=== PATIENT | male | born 1975 | race Caucasian/White ===

== ENCOUNTER 2020-01-12 04:44 | Inpatient (IN) | payer OTHER ==
[~2020-01-12] VITALS: Ht 175.3 cm; Wt 133.0 kg
[2020-01-12 04:49] VITALS: Ht 175.3 cm; Wt 133.0 kg
[2020-01-12 05:55] LABS: CALCIUM 8.2 mg/dL (8.5-10.1); CARBON DIOXIDE 26.6 mmol/L (21-32); CHLORIDE SERUM 107 mmol/L (98-107); CREATININE SERUM 0.9 mg/dL (0.7-1.3); GFR1 > 60 mL/min; GLUCOSE SERUM 119 mg/dL (74-106); POTASSIUM SERUM 3.7 mmol/L (3.5-5.1); SODIUM SERUM 140 mmol/L (136-145)
[2020-01-12 05:59] LABS: ALBUMIN 3.3 g/dL (3.4-5.0); ALKALINE PHOSPHATASE 103 U/L (46-116); ALT/SGPT 139 U/L (16-63); AST/SGOT 38 U/L (15-37); BILIRUBIN TOTAL 0.3 mg/dL (0.20-1.00); LIPASE 201 IU/L (73-393); TOTAL PROTEIN, SERUM 6.4 g/dL (6.4-8.2)
[2020-01-12 06:03] LABS: BASOPHIL % 0.9 % (0-2); PLATELET COUNT 289 x10^3mcL (130-400); RED CELL DISTRIBUTION WIDTH 14.8 % (11.5-14.5)
[2020-01-12 07:53] LABS: CHOLESTEROL/HDL RATIO 4.2
[2020-01-12 07:55] VITALS: BP 168/113
[2020-01-12 12:27] VITALS: BP 140/87
[2020-01-12] MEDS ORDERED: METOPROLOL SUCC50 M2 PO (13:38)
[2020-01-12] MEDS ORDERED: MICROZIDE12.5 MG PO (13:40)
[2020-01-12] MEDS ORDERED: OMEPRAZOLE20 M4 PO (13:41)
[2020-01-12] MEDS ORDERED: PEPTO BISM262 MG/11 PO (13:42)
[2020-01-12] MEDS ORDERED: FLAGYL250 MG PO (13:44)
[2020-01-12 17:14] VITALS: BP 164/88
[2020-01-12 21:49] VITALS: BP 163/96
[2020-01-13 06:14] VITALS: BP 144/91
[2020-01-13 08:17] VITALS: BP 144/93
[2020-01-13] MEDS ORDERED: ZESTRIL10 MG PO (12:11)
[2020-01-13] MEDS ORDERED: DOXYCYCLINE HY100 MG PO (12:20)
== END 2020-01-13 13:11 | disposition home or self-care (01) | DRG 305 ==
LOC: ED 04:44 → DU 06:22
PROVIDERS: Emergency Medicine; ADMIT Family Medicine
DX: I16.0 Hypertensive urgency (principal); I24.9 Acute ischemic heart disease, unspecified; F17.210 Nicotine dependence, cigarettes, uncomplicated; F12.10 Cannabis abuse, uncomplicated; R74.0 Nonspecific elevation of levels of transaminase and lactic acid dehydrogenase [LDH]; I10 Essential (primary) hypertension; F41.9 Anxiety disorder, unspecified; Z79.899 Other long term (current) drug therapy; Z90.49 Acquired absence of other specified parts of digestive tract; Z79.82 Long term (current) use of aspirin; Z91.14 Patient's other noncompliance with medication regimen; Z71.6 Tobacco abuse counseling
CPT/HCPCS: 83880; 85378; G0378; Q0092